=== PATIENT | female | born 1945 | race Caucasian/White ===

== ENCOUNTER 2024-06-16 15:43 | Inpatient (IN) | payer OTHER, SELFPAY ==
[2024-06-16] VITALS (10 sets, daily range): BP systolic 115–156; BP diastolic 67–90; BMI 17.3
--- NOTE | 2024-06-16 13:44 | ED.GENMED ---
History of Present Illness
General
Chief Complaint: Weakness
Time Seen by Provider: 06/16/24 13:43
History of Present Illness
History of Present Illness:
HPI: Patient came in by ambulance from home. The reason for visit is somewhat unclear. She initially tells me that she fell but then later says that she fell a year ago. She also tells me that her daughter was concerned because the patient was
'sleeping all day'.
EXAM:
GENERAL: She appears generally weak and debilitated
HEENT: Somewhat dry oral mucosa
CARDIOVASCULAR: No murmurs, normal heart rate, regular rhythm, No chest wall tenderness, port noted in the right anterior chest wall
PULMONARY: No respiratory distress, breath sounds are clear and equal
ABDOMEN: Soft with no peritoneal signs, no tenderness
NEUROLOGIC: 4+ out of 5 strength all extremities, no coordination deficits
PSYCHIATRIC: The patient appears somewhat confused at times and is a limited historian with some impaired memory but knows that she is at [place] and knows that it is June
EXTREMITIES: Nontender, no edema, moves all extremities equally
SKIN: No rash, no lesions
TIME OF INITIAL ENCOUNTER: 1:45 PM
NUMBER AND COMPLEXITY OF PROBLEMS ADDRESSED AT THE ENCOUNTER
� Chronic conditions affecting care: High blood pressure, hyperlipidemia, liver/uterine cancer, history of alcohol abuse/uterine
� Acute Exacerbation and/or Progression of Chronic Illness: This is an acute problem
� Differential Diagnosis includes: CVA, alcoholic encephalopathy, electrolyte abnormality
AMOUNT AND/OR COMPLEXITY OF DATA TO BE REVIEWED AND ANALYZED
� I performed an independent evaluation of and my interpretation is:
EKG: Sinus 70 left axis deviation, QTc [address]: CT head shows no acute abnormality
X-rays:
Laboratory Studies: CBC is unremarkable, sodium slightly low 133, bicarb is 31, creatinine 0.8, calcium is 12.8, magnesium is 1.1
Other:
� Review of other/old records: I reviewed her records, she has never had a calcium was high before
� Clinical information was obtained by an independent historian: I called Gin, daughter, but there was no answer.
� Prescriptions/Medications Considered but not given:
� Further testing considered but not performed:
RISK OF COMPLICATIONS AND/OR MORBIDITY OR MORTALITY OF PATIENT MANAGEMENT
� Social determinants of health affecting care: Lives at home
� Discussion with other providers: I discussed case with Dr. Alexis who recommends pamidronate 60mgIV; Dr. Low for admission
� Escalation of care including admission/observation vs risk of discharge considered: The patient is a very limited historian I attempted to call daughter for further history however as of 2:50 PM I was unable to reach her. She
was found to be hypercalcemic but has normal intervals on EKG. Ammonia less than 9. Transaminases have been elevated in the past but are near normal currently. She was also given IV fluids and replace her magnesium as well.
Past History
Past History
ED Past Medical History: HTN and Hypercholesterolemia
ED Past Surgical History: Gynecological
Social History
Tobacco: Smoker
Alcohol: Daily
Personal:
Living: with family
Phy Exam
Physical Exam
Physical Exam:
See HPI
Course
Orders/Labs/Results
Orders:
Orders
06/16/24 Breakfast
Cholesterol Lowering
At Your Request: Limited Participation
Cholesterol Lowering: Sodium, 2 Gram
06/16/24 13:46
0.9% Sodium Chloride 1000 ml [Nss] 1,000 ml IV BOLUS
06/16/24 13:52
CT Head W/o Iv Contrast Urgent
Comment:
Reason For Exam: severe weakness gait dysfunction
06/16/24 13:54
Alcohol Urgent
Complete Blood Count/With Diff Urgent
Comprehensive Metabolic Panel Urgent
Magnesium Urgent
TSH Reflex To Free T4 Urgent
06/16/24 13:56
Ammonia Urgent
06/16/24 14:40
Electrocardiogram (*1) Urgent
Reason for Study: Other
Other Reason for Exam: hypercalcemia
EKG- Treatment ONCE
06/16/24 15:02
Magnesium Sulfate 4 Gram/100Ml [Magnesium Sulfate] 4 gram in 100 ml IV NOW
06/16/24 15:29
Vitamin D, 25-OH Routine
06/16/24 15:31
PTH Related Peptide LC-MS/MS [S] Routine
06/16/24 15:34
Admit/Transfer Patient As Directed
Co-Sign Provider:
Level of Care: Inpatient admission
Assign to:: Telemetry
Physician / Group: rupa
Diagnosis: hypercalcemia
Reason for Telemetry: Other
Other Reason for Telemetry: electorlyte imbalance
Date to Stop Telemetry: 06/18/24
Time to Stop Telemetry: 11:00
Reason for Hospitalization: electrolyte imbalance
Expected length of stay greater than two midnights?: Yes
ELOS- Estimated Length of Stay in days: 3
I certify the patient meets the requirements for IP care: Yes
06/16/24 15:35
PRN Pain Medication Management As Directed
May give lesser potent ordered pain med per pt: Yes
preference::
Protocol:: Medication orders for pain may be administered in a
manner that supports deferring to patient preference
when the pt is:
- Requesting an ordered lesser potent pain medication.
Least to most potent pain medications are defined
as: acetaminophen < NSAID < tramadol < opioids
(morphine, oxycodone, hydromorphone).
- Requesting a lesser dose of the same medication IF
ORDERED.
- Requesting a less intrusive route of administration
if both routes are prescribed by the provider (PO <
IV).
06/16/24 15:36
Code Status As Directed
Resuscitation Status: Full Code
06/16/24 16:00
Pamidronate Disodium [Aredia] 60 mg 0.9% Sodium Chloride 250 ml [Nss] 250 ml IV ONCE
06/16/24 16:47
0.9% Sodium Chloride 1000 ml [Nss] 1,000 ml IV 100 mls/hr
Acetaminophen [Tylenol] 650 mg PO Q4HPRN PRN
Bisacodyl [Dulcolax] 10 mg RECTAL [id number] PRN
Docusate W/Senna [Senokot-S] 1 tablet PO BIDPRN PRN
Polyethylene Glycol Powder [Miralax] 17 grams PO DAILYPRN PRN
06/16/24 16:47
NEPHROLOGY CONSULT Routine
Consulting Provider: Brian Alexis V.
Was physician already notified: Yes
Activity As Directed
Activity Level: As Tolerated
Vital Signs As Directed
Frequency: Per unit guidelines
DX Deep Vein Thrombosis Video Routine
06/16/24 18:00
Enoxaparin Sodium [Lovenox] 40 mg SC QPM
06/16/24 20:00
Potassium Chloride Powder [Klor-Con] 20 meq PO BID
Thiamine HCl [Vitamin B1] 100 mg PO BID
06/16/24 22:00
Donepezil HCl [Aricept] 10 mg PO HS
06/17/24 06:00
Basic Metabolic Panel IN AM
Complete Blood Count/No Diff IN AM
06/17/24 08:00
Cholecalciferol (Vitamin D3) [VITAMIN D3 (cholecalciferol)] 25 mcg PO DAILY
Cyanocobalamin [Vitamin B-12] 1,000 mcg PO DAILY
Ezetimibe [Zetia] 10 mg PO DAILY
FOLic ACID [Folvite] 1 mg PO DAILY
Metoprolol Xl [Toprol Xl] 25 mg PO DAILY
Sertraline HCl [Zoloft] 100 mg PO DAILY
06/17/24 12:00
futibatinib 16 mg PO DAILY@1200
06/18/24 06:00
Basic Metabolic Panel IN AM
Complete Blood Count/No Diff IN AM
06/18/24 11:00
DC Protocol for Telemetry ONCE
06/19/24 06:00
Basic Metabolic Panel IN AM
Complete Blood Count/No Diff IN AM
06/20/24 06:00
Basic Metabolic Panel IN AM
Complete Blood Count/No Diff IN AM
06/21/24 06:00
Complete Blood Count/No Diff IN AM
Abnormal Lab Results
06/16/24 06/16/24
13:54 13:56
RBC 3.64 L 10^6/uL
(4.20-5.40)
Hct 34.2 L %
(37.0-47.0)
MCH 33.0 H pg
(27.0-31.0)
Absolute Lymphs (auto) 0.7 L 10^3/uL
(1.2-3.4)
Neutrophils % 80.8 H %
(42.2-75.2)
Lymphocytes % 9.8 L %
(20.5-51.1)
Sodium 133 L mmol/L
(135-145)
Chloride 91 L mmol/L
(98-107)
Carbon Dioxide 31 H mmol/L
(22-30)
BUN 21 H mg/dl
(7-17)
Glucose 138 H mg/dl
(70-99)
Calcium 12.8 H mg/dl
(8.4-10.2)
Magnesium 1.1 L mg/dl
(1.6-2.3)
AST 46 H U/L
(14-36)
Ammonia < 9 L umol/L
(9-30)
06/16/24 13:54
06/16/24 13:54
Vital Signs
Initial and Last Documented VS:
Initial Vital Signs
Temp Pulse Resp BP Pulse Ox
97.6 F 83 19 115/70 98
06/16/24 13:35 06/16/24 13:35 06/16/24 13:35 06/16/24 13:35 06/16/24 13:35
Last Documented Vital Signs
Temp Pulse Resp BP Pulse Ox
97.7 F 74 17 142/75 98
06/16/24 17:04 06/16/24 17:04 06/16/24 17:04 06/16/24 17:04 06/16/24 17:04
*Critical Care Note
Total Time (30-74mins, 75-104mins- exclusive of procedures): Not Applicable
ED Attending Note
-
Portions of this chart may have been created with voice recognition software.� Occasional wrong word or��sound alike� substitutions may have occurred due to the inherent limitations of voice recognition software.
Discharge Plan
Departure
Patient Disposition: Admit
Date of Disposition: 06/16/24
Time of Disposition: 15:12
Presentation/result/management discussed w/ accepting MD/DO: Hospitalist
Discharge Problem:
Hypercalcemia
Interventions
Interventions:
*Risk Screen - Suicide Last Done: 06/16/24 13:35
*General Assessment Last Done: 06/16/24 13:35
*Neglect/Abuse Screening Last Done: 06/16/24 13:35
*ED COVID-19 Vaccine History Last Done: 06/16/24 13:35
*Nursing Disposition Last Done: 06/16/24 17:20
ED- Cardiac Assessment Last Done: 06/16/24 13:42
ED- Neurological Assessment Last Done: 06/16/24 13:42
ED- Pulmonary Assessment Last Done: 06/16/24 13:42
Discharge Date and Time
Discharge Date/Time: 06/16/24 17:20
[2024-06-16] MEDS: NSS 1000 IV ×2 (13:55→17:51)
[2024-06-16 14:10] LABS: % Basophils 0.5 % (0-2); % Eosinophils 1.6 % (0-6); % Immature Granulocytes 0.5 % (0-0.5); % Lymphocytes 9.8 % (20.5-51.1); % Monocytes 6.8 % (1.7-9.3); % Neutrophils 80.8 % (42.2-75.2); Absolute Eosinophils 0.1 10^3/uL (0-0.7); Absolute Lymphocytes 0.7 10^3/uL (1.2-3.4); Absolute Monocytes 0.5 10^3/uL (0.1-0.6); Hematocrit 34.2 % (37.0-47.0); Mean Corp Hgb Conc. 35.1 g/dL (33.0-37.0); Mean Platelet Volume 8.6 fL (7.4-10.4); Nucleated Red Blood Cells % 0 %; Platelet Count 148 10^3/uL (130-400); Red Blood Cell Count 3.64 10^6/uL (4.20-5.40); Red Cell Dist. Width 12.5 % (11.5-14.5); White Blood Cell Count 7.5 10^3/uL (4.8-10.8)
[2024-06-16 14:28] LABS: Ammonia < 9 umol/L (9-30)
[2024-06-16 14:30] LABS: ALT (SGPT) 19 U/L (0-35); AST (SGOT) 46 U/L (14-36); Alkaline Phosphatase 98 U/L (38-126); Blood Urea Nitrogen 21 mg/dl (7-17); Calcium 12.8 mg/dl (8.4-10.2); Carbon Dioxide 31 mmol/L (22-30); Chloride 91 mmol/L (98-107); Glucose 138 mg/dl (70-99); Magnesium 1.1 mg/dl (1.6-2.3); Potassium 4.1 mmol/L (3.5-5.1); Sodium 133 mmol/L (135-145); Total Bilirubin 0.4 mg/dl (0.2-1.3); Total Protein 6.9 g/dl (6.3-8.2); eGFR > 60.00
[2024-06-16 14:49] LABS: Alcohol None Detected
[2024-06-16 14:58] LABS: TSH Reflex To Free T4 2.43 uIU/ml (0.47-4.68)
--- NOTE | 2024-06-16 14:59 | HPS.HSE ---
Family Physician
-
Family Physician: An Singleton
Chief Complaint
-
worsening confusion, garbled speech
History of Present Illness
78 year old with PMH for uterine ca patricia to liver, hld, depression presented to us with confusion which is worse than her baseline. daughter noticed mom sleeping more than usual. she was noted to have garbled speech. very weak. Patient denied
headache, dizziness, syncopal episode. Patient denied fever, chills, chest pain, short of breath. Patient denied abdominal pain, nausea, vomiting or diarrhea. Patient denied dysuria,hematuria.
Head CT with no acute findings. Patient was noted to have hypomagnesemia, hypercalcemia. Patient received mag rider, normal saline, pamidronate in the ER. Admitting for further management
Medical History
Past Medical History
Past Medical History: Reports Other
Additional Past Medical History:
htn
osteopenia
endometrial ca
dementia
cholangiocarcinoma
hld
depression
metastatic liver ca
Past Surgical History: Reports Other
Additional Past Surgical History:
cataract extraction
hysterectomy
Social History
Tobacco: Non-smoker
Alcohol: Former
Drug: None
Personal: Single
Living: With Family
Family History
Family History: Not pertinent
Allergies / Home Medications
Allergies reflects when Allergies were last updated in [facility].
Home Medications with original date entered in [facility]
Allergy/Medication List:
Allergies
Allergy/AdvReac Type Severity Reaction Status Date / Time
amoxicillin Allergy Unknown Verified 09/28/23 10:56
Cephalosporins Allergy Unknown Verified 09/28/23 10:56
penicillin G Allergy Unknown Verified 09/28/23 10:56
Penicillins Allergy Rash Verified 09/28/23 10:56
Home Medications
cholecalciferol (vitamin D3) 25 mcg (1,000 unit) tablet (Vitamin D3) 25 mcg PO DAILY ##0 07/30/16
donepezil 10 mg tablet 10 mg PO HS 07/01/23
folic acid 1 mg tablet 1 mg PO DAILY 07/01/23
metoprolol succinate 25 mg tablet,extended release 24 hr 25 mg PO DAILY 07/01/23
potassium chloride 20 mEq oral packet (Klor-Con) 20 meq PO BID 07/01/23
sertraline 100 mg tablet 100 mg PO DAILY 07/01/23
thiamine HCl (vitamin B1) 100 mg tablet 100 mg PO BID #0 tabs 07/02/23
cyanocobalamin (vitamin B-12) 1,000 mcg tablet 1,000 mcg PO DAILY 06/16/24
ezetimibe 10 mg tablet (Zetia) 10 mg PO DAILY 06/16/24
futibatinib 16 mg/day (4 mg x 4) tablet 16 mg PO DAILY@1200 06/16/24
Review of Systems
-
Constitutional: Reports No Symptoms
EENT: Reports No Symptoms
Respiratory: Reports No Symptoms
Cardiac: Reports No Symptoms
Abdomen/GI: Reports No Symptoms
: Reports No Symptoms
Musculoskeletal: Reports No Symptoms
Skin: Reports No Symptoms
Neurological: Reports Weakness
Endocrine: Reports No Symptoms
Hematologic/Lymphatic: Reports No Symptoms
Psych: Reports No Symptoms
Physical Exam
Vital Signs
Vital Signs
Temp Pulse Resp BP Pulse Ox
97.6 F 73 17 115/69 98
06/16/24 13:35 06/16/24 14:16 06/16/24 14:16 06/16/24 14:15 06/16/24 14:16
Physical Exam
General: Well Developed, Well Nourished and No Apparent Distress
HEENT: NormoCephalic, Moist mucous membranes and Atraumatic
Respiratory: Clear
Cardiac: S1/S2 and Regular Rhythm; No Murmur or Rub
GI: Soft, Non Tender, Non Distended and Normal Bowel Sounds; No Organomegaly
Rectal: Deferred by Provider
Musculoskeletal: No Clubbing, No Cyanosis and No Edema
Skin: No Rash
Neuro: AO x 3 and Nonfocal/grossly intact
Psych: Calm
Laboratory Results
-
06/16/24 13:54
06/16/24 13:54
Laboratory Results
Total Bilirubin 0.4 mg/dl (0.2-1.3) 06/16/24 13:54
AST 46 U/L (14-36) H 06/16/24 13:54
ALT 19 U/L (0-35) 06/16/24 13:54
Alkaline Phosphatase 98 U/L (38-126) 06/16/24 13:54
Data Reviewed
-
CT Scan: Report Reviewed by me
Lab Data: Labs Reviewed by me
Impression/Plan
-
#worsening generalized weakness/confusion/garbled speech
-hea CT with No acute intracranial abnormality noted.Senescent changes, similar to prior.
-ctm
-PT/OT consult
#hxt of liver and uterine ca
#hypercalcemia/hypomag likely dehydration
-pamidronate 60g iv in ER
-mag rider in ER
-check PTH and vitamin
-monitor labs in am
-Normal saline 100 cc continued
-Nephrology consulted
#chronic hyponatremia
-na 133
-ctm
#Essential hypertension
-Metoprolol continued with hold parameters
#Dementia -continue donepezil.
# Hyperlipidemia
-Zetia continued
# History of uterine cancer
-Status post hysterectomy
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
= On futibatinib
#Depression -continue sertraline.
# DVT prophylaxis
-Lovenox
Full code
[2024-06-16] MEDS: MAGNESIUM SULFATE 100 IV (15:14)
--- NOTE | 2024-06-16 15:19 | W.CON.NEPH ---
Consultation
-
Date/Time Consultation Requested: 06/16/2024 3:00 PM
Date/Time Consultation Performed: 06/16/2024 3:00 PM
Requesting Provider: Dr. Cabrera
Performing Provider: Dr. Alexis
Reason for Consultation: Hypercalcemia
Medical History
-
Chief Complaint: Hypercalcemia
History of Present Illness:
The patient is a 78-year-old female with a past medical history of hypertension currently only maintained on metoprolol. Her lisinopril was recently titrated off by her PCP due to hypotension. She has a history of cholangiocarcinoma with liver
mets and is maintained on palliative care as she did not previously tolerate chemo. She is maintained on benazepril for her evolving dementia and is maintained on Zetia for dyslipidemia. She presented to the hospital at the urging of her daughter
for increasing weakness and confusion. On presentation to the emergency room her calcium level was elevated to 12.8 and nephrology was consulted.
Past Medical History
Hypertension
Dementia
Cholangiocarcinoma with liver mets
Depression
Recurrent falls
History of orthostatic hypotension
Prior history of alcohol abuse
Social History
Tobacco: Non-Smoker
Alcohol: Chronic Alcoholic
Family History
No CKD
Allergies / Home Medications
Allergy/AdvReac Type Severity Reaction Status Date / Time
amoxicillin Allergy Unknown Verified 09/28/23 10:56
Cephalosporins Allergy Unknown Verified 09/28/23 10:56
penicillin G Allergy Unknown Verified 09/28/23 10:56
Penicillins Allergy Rash Verified 09/28/23 10:56
�Medication �Instructions �Recorded �Confirmed �Type
cholecalciferol (vitamin D3) 25 25 mcg PO DAILY ##0 07/30/16 06/16/24 History
mcg (1,000 unit) tablet (Vitamin
D3)
donepezil 10 mg tablet 10 mg PO HS 07/01/23 06/16/24 History
folic acid 1 mg tablet 1 mg PO DAILY 07/01/23 06/16/24 History
metoprolol succinate 25 mg 25 mg PO DAILY 07/01/23 06/16/24 History
tablet,extended release 24 hr
potassium chloride 20 mEq oral 20 meq PO BID 07/01/23 06/16/24 History
packet (Klor-Con)
sertraline 100 mg tablet 100 mg PO DAILY 07/01/23 06/16/24 History
thiamine HCl (vitamin B1) 100 mg 100 mg PO BID #0 tabs 07/02/23 06/16/24 Rx
tablet
cyanocobalamin (vitamin B-12) 1,000 mcg PO DAILY 06/16/24 06/16/24 History
1,000 mcg tablet
ezetimibe 10 mg tablet (Zetia) 10 mg PO DAILY 06/16/24 06/16/24 History
futibatinib 16 mg/day (4 mg x 4) 16 mg PO DAILY@1200 06/16/24 06/16/24 History
tablet
Review of Systems
-
Unable to obtain full review of systems at this time due to: Dementia
History Source: Patient
All other systems: Negative unless noted
Constitutional: Weight Loss and Other (decreased appetite, falls )
EENT: No Symptoms
Respiratory: No Symptoms
Cardiac: No Symptoms
Abdomen/GI: No Symptoms
: No Symptoms
Skin: No Symptoms
Neurological: Other (weakness)
Endocrine: No Symptoms
Hematologic/Lymphatic: No Symptoms
Physical Exam
Vital Signs
Vital Signs
Temp Pulse Resp BP Pulse Ox
97.6 F 73 17 115/69 98
06/16/24 13:35 06/16/24 14:16 06/16/24 14:16 06/16/24 14:15 06/16/24 14:16
Lab Results
06/16/24 13:54
06/16/24 13:54
WBC 7.5 10^3/uL (4.8-10.8) 06/16/24 13:54
RBC 3.64 10^6/uL (4.20-5.40) L 06/16/24 13:54
Hgb 12.0 g/dL (12.0-16.0) 06/16/24 13:54
Hct 34.2 % (37.0-47.0) L 06/16/24 13:54
Plt Count 148 10^3/uL (130-400) 06/16/24 13:54
Sodium 133 mmol/L (135-145) L 06/16/24 13:54
Potassium 4.1 mmol/L (3.5-5.1) 06/16/24 13:54
Chloride 91 mmol/L (98-107) L 06/16/24 13:54
Carbon Dioxide 31 mmol/L (22-30) H 06/16/24 13:54
BUN 21 mg/dl (7-17) H 06/16/24 13:54
Creatinine 0.8 mg/dL (0.6-1.0) 06/16/24 13:54
eGFR > 60.00 06/16/24 13:54
Glucose 138 mg/dl (70-99) H 06/16/24 13:54
Calcium 12.8 mg/dl (8.4-10.2) H 06/16/24 13:54
Albumin 4.0 g/dl (3.5-5.0) 06/16/24 13:54
Physical Exam
General: AOx1, Nontoxic , NAD, frail
HEENT: PERRL, EOMI, Anicteric, Conjunctivae Clear, Ear/Nose Intact, Hearing Normal, Oropharynx Clear/Moist, Dentition Intact, Facial Symmetry, Neck Supple, Neck: Trachea Midline, No JVD and No Thyromegaly, no Bruits
Respiratory: Clear to auscultation bilaterally with normal lung exersion
Cardiac: S1/S2 and Regular Rate/Rhythm
Breast: Deferred by me
Abdomen: Soft, Nontender, Nondistended, Normal Bowel Sounds and No Hepatosplenomegaly
Rectal: Deferred by Provider
Genito-urinary: No Costovertebral Tenderness
Extremities: No Clubbing, No Cyanosis and No Edema
Skin: No Rash or open lesions
Neuro: Nonfocal/Grossly Intact, CN II-XII (Intact) and Strength (Musculoskeletal exam 5 out of 5 both upper and lower extremities)
Hematologic/Lymphatic: No Cervical Lymphadenopathy, No Submandibular Lymphadenopathy and No Supraclavicular Lymphadenopathy
Psych: Mood/afflect pleasant, Insight/judgement impaired
Vascular: plus 1pedal and radial pulses
Data Reviewed
-
CT Scan: Report Reviewed by me (CT of head without acute findings )
Medical Tests (Nuc Med, Echo etc): Other (EKG NSR at 70bpm (personally reviewed))
Labs: Labs Reviewed by me (BMP)
Old Records: Reviewed (Reviewed old records in electronic medical record from 09/28/2023 calcium 10.6)
Assessment/Plan
-
Impression:
Hypercalcemia
History of cholangiocarcinoma with liver mets
History of hypertension
History of dementia
History of dyslipidemia
Prior history of alcohol abuse
Plan:
Patient presents with increasing fatigue and mental status changes likely induced from hypercalcemia: 12.8
-provided 60 mg IV pamidronate provided in the emergency room
-Initiate IV fluids normal saline 125 cc/h
-accurate i/os
-Obtain SPEP intact PTH, , PTH RP, TSH
-Suspect underlying hypercalcemia is a function of immobility and malignancy
[2024-06-16] MEDS: AREDIA 270 MG IV (15:44)
--- NOTE | 2024-06-16 16:08 | W.PN.UPDATE ---
Update Note
Progress Note Update
This is an addendum to the H&P written by Lorena Eli on 06/16/2024.� Patient seen and examined independently with RELIEF SALESPERSON.��
78-year-old female past medical history of uterine cancer, cholangiocarcinoma with metastases to liver on futibatinib, former alcohol use disorder, peripheral neuropathy, hyponatremia, hypomagnesemia, hypertension, hyperlipidemia, depression,
presenting with weakness, lethargy and difficulty speaking over the past few days.� Denies vomiting or diarrhea.
Patient with calcium of 12.8 likely related to malignancy/component of hypovolemia.� Check PTH, PTH-RP, vitamin D, SPEP, UPEP.� IV fluids.� Pamidronate being given.� Also with hypomagnesemia no longer drinking alcohol.� Magnesium repletion.�
Nephrology consulted.
[2024-06-16] MEDS: LOVENOX 40 MG SC (18:00)
[2024-06-16 18:34] LABS: Vitamin D, 25-OH*** 57.6 ng/mL (30-80)
[2024-06-16] MEDS: KLOR-CON 20 MEQ PO (20:10)
[2024-06-16] MEDS: VITAMIN B1 100 MG PO (20:10)
[2024-06-16] MEDS: ARICEPT 10 MG PO (20:54)
[2024-06-17] VITALS (7 sets, daily range): BP systolic 108–176; BP diastolic 58–96; PULSE 73; BMI 17.3
[2024-06-17] MEDS: NSS 1000 IV ×3 (02:06→20:06)
[2024-06-17 07:42] LABS: Hematocrit 33.3 % (37.0-47.0); Hemoglobin 11.9 g/dL (12.0-16.0); Mean Corp Hgb Conc. 35.7 g/dL (33.0-37.0); Mean Corpuscular Hgb 33.4 pg (27.0-31.0); Mean Corpuscular Volume 93.5 fL (81.0-99.0); Mean Platelet Volume 8.8 fL (7.4-10.4); Platelet Count 147 10^3/uL (130-400); Red Blood Cell Count 3.56 10^6/uL (4.20-5.40); Red Cell Dist. Width 12.5 % (11.5-14.5); White Blood Cell Count 7.7 10^3/uL (4.8-10.8)
[2024-06-17 08:14] LABS: Blood Urea Nitrogen 13 mg/dl (7-17); Calcium 12.3 mg/dl (8.4-10.2); Carbon Dioxide 28 mmol/L (22-30); Chloride 96 mmol/L (98-107); Estimated Creatinine Clearance 59 ml/min; Glucose 113 mg/dl (70-99); Potassium 3.6 mmol/L (3.5-5.1); Sodium 133 mmol/L (135-145); eGFR > 60.00
[2024-06-17] MEDS: ZETIA 10 MG PO (09:22)
[2024-06-17] MEDS: VITAMIN D3 (cholecalciferol) 25 MCG PO (09:23)
[2024-06-17] MEDS: FOLVITE 1 MG PO (09:23)
[2024-06-17] MEDS: VITAMIN B1 100 MG PO ×2 (09:23→20:03)
[2024-06-17] MEDS: ZOLOFT 100 MG PO (09:23)
[2024-06-17] MEDS: VITAMIN B-12 1000 MCG PO (09:23)
[2024-06-17] MEDS: TOPROL XL 25 MG PO (09:23)
[2024-06-17] MEDS: KLOR-CON 20 MEQ PO ×2 (09:28→20:03)
--- NOTE | 2024-06-17 11:17 | W.PN.HOSP.TC ---
Addendum entered and electronically signed by Walt Joseph MD 06/17/24 15:54:
Cholangioscoma, with mets to liver lungs ribs. Follows at [facility] with Dr. Merritt.
Was on chemotherapy for 3 months and now has been on immunotherapy for 6 months.
Life expectancy 6 to 9 months
Had evaluation for potential hospice however missed push herself refused. This was on Thursday. Per daughter declined began on Thursday.
States that she is supposed to have a repeat CT chest abdomen pelvis in July to assess if targeted therapy is improving/helping.
Addendum entered and electronically signed by Walt Joseph MD 06/17/24 15:17:
cholangiosarcoma with liver mets. on futibatinib
Original Note:
Today's Communication/Plan
-
Daily BMP, follow Ca
Moitor on tele
IVF
May need calcitonin
Nephrology following
Assessment / Plan
Assessment / Plan
Imaging
Physical Exam
NAD, resting comfortably in bed
Scleral anicteric
Moist mucous membranes
No JVD
CTA bilateral
Normal S1-S2 no murmurs
Soft nontender nondistended bowel sounds active
No peripheral pitting edema
Moves extremities spontaneously
AAOx3
Assessment and Plan
Hypercalcemia
- -Multifactorial in the setting of malignancy, dryness, immobility
-s/p IV bisphos
-Main need to consider calcitonin
-Await PTH, VitD, Spep/UPEP
-Continue IVF
-Nephrology following
Uterine Ca with liver mets
-Outpatient [facility]-Onc follow up
-S/p hysterrectomy
HLD
-Continue zetia
Depression
-Cotinue Sertraline
Anticipated Discharge: 24 - 48 hours
Subjective/Interval History
-
Date of Service: June 17, 2024
seen and examined
no new compalints
no acute overnight events
just returned from using the restroom
Objective Data
-
Labs:
Laboratory Results
06/17/24
07:15
WBC 7.7
Hgb 11.9 L
Hct 33.3 L
Plt Count 147
Sodium 133 L
Potassium 3.6
Chloride 96 L
Carbon Dioxide 28
BUN 13
Creatinine 0.5 L
Glucose 113 H
Calcium 12.3 H
Vital Signs:
Vital Signs
Temp Pulse Resp BP Pulse Ox
97.4 F 69 16 166/87 97
06/17/24 07:30 06/17/24 07:30 06/17/24 07:30 06/17/24 07:30 06/17/24 07:30
I&O
06/16/24 06/17/24 06/18/24
06:59 06:59 06:59
Intake Total 1979
Balance 1979
--- NOTE | 2024-06-17 17:09 | W.PN.NEPH.PH ---
Today's Communication / Plan
-
see plan
Assessment/Plan
-
Impression:
Hypercalcemia
History of cholangiocarcinoma with liver mets
History of hypertension
History of dementia
History of dyslipidemia
Prior history of alcohol abuse
Plan:
Patient presents with increasing fatigue and mental status changes likely induced from hypercalcemia: 12.8
s/p 60 mg IV pamidronate on 06/16
michelle only slightly better at 12.3
cont normal saline 125 cc/h, will give 500cc bolus
-accurate i/os
pending SPEP intact PTH, , PTH RP, normal TSH and vit D, hold vit D med
-Suspect underlying hypercalcemia is a function of immobility and malignancy vs medication (Futibatinib)
CT abd ordered per primary
BP are increasing trend, add prn hydralazine and cont home meds
replace mg since remains low , check phos level, not on PPI
stable hyponatremia, encourage solute intake
labs in am
d/w nursing and primary
-
-
Date of Service: June 17, 2024
CC / HPI / ROS
-
Chief Complaint:
hypercalcemia
History of Present Illness:
michelle is 12.3 only slightly better
BP increasing trend
poor po intake per nursing
k normal, cr 0.5
mg low 1
Review of Systems:
no complaints, no dysuria. seem non oliguric
no nv/
abd discomfort
Labs
-
Labs:
WBC 7.7 10^3/uL (4.8-10.8) 06/17/24 07:15
RBC 3.56 10^6/uL (4.20-5.40) L 06/17/24 07:15
Hgb 11.9 g/dL (12.0-16.0) L 06/17/24 07:15
Hct 33.3 % (37.0-47.0) L 06/17/24 07:15
Plt Count 147 10^3/uL (130-400) 06/17/24 07:15
Sodium 133 mmol/L (135-145) L 06/17/24 07:15
Potassium 3.6 mmol/L (3.5-5.1) 06/17/24 07:15
Chloride 96 mmol/L (98-107) L 06/17/24 07:15
Carbon Dioxide 28 mmol/L (22-30) 06/17/24 07:15
BUN 13 mg/dl (7-17) 06/17/24 07:15
Creatinine 0.5 mg/dL (0.6-1.0) L 06/17/24 07:15
eGFR > 60.00 06/17/24 07:15
Glucose 113 mg/dl (70-99) H 06/17/24 07:15
Calcium 12.3 mg/dl (8.4-10.2) H 06/17/24 07:15
Albumin 4.0 g/dl (3.5-5.0) 06/16/24 13:54
Physical Exam
-
Vital Signs:
Vital Signs
Temp Pulse Resp BP Pulse Ox
98.2 F 74 16 176/93 97
06/17/24 12:04 06/17/24 12:04 06/17/24 12:04 06/17/24 12:04 06/17/24 12:04
Cardiovascular:: Regular rate and rhythm
Respiratory:: Bilateral: CTA
Lung Excursion:: Normal
Abdomen:: Nontender and Soft
Extremity Edema:: None: Bilateral:
Little Catheter: No
--- NOTE | 2024-06-17 17:14 | CM ---
Alert confused patient who lives with her dgt Gin in a 2 story home with 1 steps to enter and 14 steps to bed/bathroom. She is assisted in activates of daily living.She uses a walker and walker.Alesha chent at bedside answered IA questions.Will need
PT OT for dc planning
Had VN in past . No [facility]
Pharmacy [facility]
PCP Dr Singleton
PLAN Will need PT OT for dc planning
[2024-06-17] MEDS: PROCARDIA XL (EXTENDED RELEASE) 30 MG PO (17:24)
[2024-06-17] MEDS: MAGNESIUM SULFATE 100 IV (17:25)
[2024-06-17] MEDS: LOVENOX 40 MG SC (17:26)
[2024-06-17] MEDS: ARICEPT 10 MG PO (21:28)
[2024-06-18 03:00] VITALS: BP 130/68
[2024-06-18] MEDS: NSS 1000 IV ×2 (05:15→17:47)
[2024-06-18 06:00] VITALS: BMI 16.6
--- NOTE | 2024-06-18 07:48 | W.PN.HOSP.TC ---
Today's Communication/Plan
-
.
Assessment / Plan
Assessment / Plan
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 The patient was
noted she has been more sleeping recently than her usual. She was obtained head CT which sowed not acute abnormality. Her lab results revealed hypomagnesemia, hypercalcemia and hypophosphatemia. Patient received mag rider, normal saline,
pamidronate in the ER. She was admitted and was given mg and Phosphorus IV. she will be monitored for electrolyte imbalance and her other chronic medical problems.
Assessment and Plan
#Acute metabolic encephalopathy
-Underlying dementia
-Metabolic encephalopathy likely related Hyperglycemia, which is improving
-Patient is calm/cooperative
-Continue donepezil
#Generalized weakness
-Likely multifactorial with underlying Cholangiocarcinoma with mets to liver/lung
-She was able to ambulate 20 ft with RW with min assist on 06/17
#Hypercalcemia/Hypophosphatemia
-Likely due futibatinib side effect which was reviewed on literature: %50 percent of patients are expected to have hypercalcemia and electrolyte problems
-Ca level dropped from 12.3 to 10.5
-Vit D: normal level, TSH: normal level
-PTH and PTHrp pending
-IV bisphos was given at ER admission
-M.5 and P 1.8: Mg and Phosphorus was given yesterday and today
-Continue to check Ca, Mg, P daily
-Continue IVF
-Nephrology following
#Cholangiocarcinoma with mets to liver/lung
-Primary oncologist discussing prognosis/palliative care/hospice options
-Patient to follow-up with oncology next week in office
-Chest CT:
1. Extensive infiltrative hypoattenuating masses throughout both hepatic lobes in keeping with neoplasm/metastases.
2. Extensive pulmonary metastases throughout all lobes bilaterally.
3. Several prominent soft tissue osseous metastases as described.
#Hx of Uterine ca
-Outpatient FLIGHT OPERATIONS SPECIALIST-Onc follow up
-S/p hysterrectomy
#Hyponatremia
-Na Satbile at 133
-Monitor
#HLD
-Continue zetia
#Depression
-Cotinue Sertraline
Anticipated Discharge: 24 - 48 hours
Subjective/Interval History
-
Date of Service: June 18, 2024
The patient was seen in her room with her daughter and she reported feeing well. She denied chest pain, abdominal pain and any extremity pain.
Objective Data
-
Labs:
Laboratory Results
06/18/24
06:00
WBC Pending
Hgb Pending
Hct Pending
Plt Count Pending
Sodium Pending
Potassium Pending
Chloride Pending
Carbon Dioxide Pending
BUN Pending
Creatinine Pending
Glucose Pending
Calcium Pending
Vital Signs:
Vital Signs
Temp Pulse Resp BP Pulse Ox
97 F 64 14 130/68 97
06/18/24 03:00 06/18/24 03:00 06/18/24 03:00 06/18/24 03:00 06/18/24 03:00
I&O
06/17/24 06/18/24 06/19/24
06:59 06:59 06:59
Intake Total 1979 600 / 600 120 / 120
Balance 1979 600 / 600 120 / 120
Review of Systems
-
Unable to obtain full review of systems at this time due to: Dementia
History Source: Patient and Family
EENT: Reports No Symptoms Reported
Respiratory: Reports No Symptoms
Cardiac: Reports No Symptoms
Abdomen/GI: Reports No Symptoms
Genitourinary: Reports No Symptoms
Musculoskeletal: Reports Other (generalized weakness )
Skin: Reports No Symptoms
Neuro: Reports Other (Dementia)
Psych: Reports Other (calm )
Physical Exam
-
General: Comfortable and Appears Chronically Ill
HEENT: Normocephalic and Atraumatic
Respiratory: Clear to Auscultation
Cardiac: Regular Rhythm and S1/S2
GI: Soft, Nontender and Other (Some feeling of discomfort on the right upper side of abdomen. No rebound, no guarding )
Musculoskeletal: No Clubbing, No Cyanosis and Other (Generalized weakness )
Skin: Warm and Dry
Neuro: AO x 3
Psych: Calm
[2024-06-18 08:00] VITALS: BP 141/76
[2024-06-18 08:50] LABS: Hematocrit 30.4 % (37.0-47.0); Hemoglobin 10.8 g/dL (12.0-16.0); Mean Corp Hgb Conc. 35.5 g/dL (33.0-37.0); Mean Corpuscular Hgb 33.1 pg (27.0-31.0); Mean Corpuscular Volume 93.3 fL (81.0-99.0); Platelet Count 130 10^3/uL (130-400); Red Blood Cell Count 3.26 10^6/uL (4.20-5.40); Red Cell Dist. Width 12.5 % (11.5-14.5); White Blood Cell Count 6.2 10^3/uL (4.8-10.8)
[2024-06-18 09:10] LABS: Blood Urea Nitrogen 8 mg/dl (7-17); Calcium 10.5 mg/dl (8.4-10.2); Carbon Dioxide 26 mmol/L (22-30); Chloride 97 mmol/L (98-107); Estimated Creatinine Clearance 56 ml/min; Glucose 99 mg/dl (70-99); Magnesium 1.5 mg/dl (1.6-2.3); Phosphorus 1.8 mg/dl (2.5-4.5); Potassium 3.4 mmol/L (3.5-5.1); Sodium 133 mmol/L (135-145); eGFR > 60.00
[2024-06-18] MEDS: KLOR-CON 20 MEQ PO ×2 (09:38→19:52)
[2024-06-18] MEDS: VITAMIN B1 100 MG PO ×2 (09:38→19:52)
[2024-06-18] MEDS: PROCARDIA XL (EXTENDED RELEASE) 30 MG PO (09:39)
[2024-06-18] MEDS: TOPROL XL 25 MG PO (09:39)
[2024-06-18] MEDS: VITAMIN B-12 1000 MCG PO (09:39)
[2024-06-18] MEDS: FOLVITE 1 MG PO (09:39)
[2024-06-18] MEDS: ZOLOFT 100 MG PO (09:39)
[2024-06-18] MEDS: ZETIA 10 MG PO (09:39)
[2024-06-18] MEDS: POTASSIUM PHOSPHATE 259.0909 MEQ IV (11:27)
[2024-06-18] MEDS: OMNIPAQUE 50 ML PO (11:37)
[2024-06-18 11:55] VITALS: BP 117/61
--- NOTE | 2024-06-18 13:38 | W.PN.NEPH.PH ---
Today's Communication / Plan
-
wean down IVF rate
replace k, mg and phos
Assessment/Plan
-
Impression:
Hypercalcemia
History of cholangiocarcinoma with liver mets
History of hypertension
History of dementia
History of dyslipidemia
Prior history of alcohol abuse
Plan:
Patient presents with increasing fatigue and mental status changes likely induced from hypercalcemia: 12.8
s/p 60 mg IV pamidronate on 06/16
michelle improving to 10.5
decrease normal saline 80 cc/hr and attempt to wean off tomorrow
-accurate i/os
pending SPEP intact PTH, , PTH RP, normal TSH and vit D, hold vit D med
-Suspect underlying hypercalcemia is a function of immobility and malignancy vs medication (Futibatinib)
CT abd ordered per primary
BP stable, cont home meds
replace mg and phos not on PPI
stable hyponatremia, encourage solute intake
labs in am
d/w pt
-
-
Date of Service: June 18, 2024
CC / HPI / ROS
-
Chief Complaint:
hypercalcemia
History of Present Illness:
michelle better at 10.5
BP stable
poor po intake
k low 3.4, mg better at 1.5, phos 1.8
Review of Systems:
no complaints, no dysuria. seem non oliguric
no nv/
no abd discomfort currently
Labs
-
Labs:
WBC 6.2 10^3/uL (4.8-10.8) 06/18/24 08:23
RBC 3.26 10^6/uL (4.20-5.40) L 06/18/24 08:23
Hgb 10.8 g/dL (12.0-16.0) L 06/18/24 08:23
Hct 30.4 % (37.0-47.0) L 06/18/24 08:23
Plt Count 130 10^3/uL (130-400) 06/18/24 08:23
Sodium 133 mmol/L (135-145) L 06/18/24 08:23
Potassium 3.4 mmol/L (3.5-5.1) L 06/18/24 08:23
Chloride 97 mmol/L (98-107) L 06/18/24 08:23
Carbon Dioxide 26 mmol/L (22-30) 06/18/24 08:23
BUN 8 mg/dl (7-17) 06/18/24 08:23
Creatinine 0.4 mg/dL (0.6-1.0) L 06/18/24 08:23
eGFR > 60.00 06/18/24 08:23
Glucose 99 mg/dl (70-99) 06/18/24 08:23
Calcium 10.5 mg/dl (8.4-10.2) H 06/18/24 08:23
Phosphorus 1.8 mg/dl (2.5-4.5) L 06/18/24 08:23
Albumin 4.0 g/dl (3.5-5.0) 06/16/24 13:54
Physical Exam
-
Vital Signs:
Vital Signs
Temp Pulse Resp BP Pulse Ox
97.5 F 74 16 117/61 99
06/18/24 11:55 06/18/24 11:55 06/18/24 11:55 06/18/24 11:55 06/18/24 11:55
Cardiovascular:: Regular rate and rhythm
Respiratory:: Bilateral: CTA
Lung Excursion:: Normal
Abdomen:: Nontender and Soft
Extremity Edema:: None: Bilateral:
Little Catheter: No
--- NOTE | 2024-06-18 13:43 | W.PN.UPDATE ---
Update Note
Progress Note Update
I saw and evaluated the patient. I reviewed the resident�s note and agree with findings and plan as documented in the resident�s note.
Patient remains pleasantly communicative.
Daughter at bedside during the AM round
Some lower abd discomfot, abd exam is benign,
1. Acute metabolic encephalopathy
Underlying cognitive impairment/dementia
-Patient remains pleasantly disoriented
-Metabolic encephalopathy likely related Hyperglycemia, which is improving
-Continue donepezil home dose
-No behavioral disturbances reported
2. Hypercalcemia
Hypophosphatemia
-Likely secondary to futibatinib side effect , literature reviewed and 50% patient develops this kind of electrolye imbalance
-Patient with pamidronate injection at admission
-Vitamin D within normal limit, up PTH and PTH RP level pending
-Calcium continue to trend down and 10.5 today
-Nephrology following and help appreciated
-Providing K-Phos rider to replete phosphorus
3. Hypomagnesemia
- replace with 2g magnesium
4. Metastatic cholangiocarcinoma
-Primary oncologist discussing prognosis/palliative care/hospice options
-CT chest abdomen pelvis ordered to better quantify tumor burden and therapy response
-Patient to follow-up with oncology next week in office
5. Hyponatremia
-minimal, monitor
PT/OT evaluation
Repeat blood work in morning
Potential discharge home tomorrow if appropriate.
Total time spent : 53mins
[2024-06-18 16:00] VITALS: BP 120/71
[2024-06-18] MEDS: MAGNESIUM SULFATE 50 IV (17:47)
[2024-06-18] MEDS: LOVENOX 40 MG SC (17:47)
[2024-06-18 19:00] VITALS: BP 132/80
[2024-06-18] MEDS: ARICEPT 10 MG PO (21:18)
[2024-06-18 23:00] VITALS: BP 120/61
[2024-06-19] VITALS (7 sets, daily range): BP systolic 109–147; BP diastolic 65–80; PULSE 77
[2024-06-19] MEDS: NSS IV (04:47)
[2024-06-19 05:00] LABS: Hematocrit 31.6 % (37.0-47.0); Hemoglobin 11.3 g/dL (12.0-16.0); Mean Corp Hgb Conc. 35.8 g/dL (33.0-37.0); Mean Corpuscular Hgb 32.9 pg (27.0-31.0); Mean Corpuscular Volume 92.1 fL (81.0-99.0); Mean Platelet Volume 9.1 fL (7.4-10.4); Platelet Count 151 10^3/uL (130-400); Red Blood Cell Count 3.43 10^6/uL (4.20-5.40); Red Cell Dist. Width 12.4 % (11.5-14.5); White Blood Cell Count 6.4 10^3/uL (4.8-10.8)
[2024-06-19 05:24] LABS: ALT (SGPT) 18 U/L (0-35); AST (SGOT) 54 U/L (14-36); Albumin 3.6 g/dl (3.5-5.0); Alkaline Phosphatase 105 U/L (38-126); Blood Urea Nitrogen 7 mg/dl (7-17); Carbon Dioxide 23 mmol/L (22-30); Chloride 96 mmol/L (98-107); Estimated Creatinine Clearance 56 ml/min; Glucose 80 mg/dl (70-99); Magnesium 1.6 mg/dl (1.6-2.3); Potassium 3.9 mmol/L (3.5-5.1); Sodium 130 mmol/L (135-145); Total Bilirubin 0.6 mg/dl (0.2-1.3); Total Protein 6.4 g/dl (6.3-8.2); eGFR > 60.00
--- NOTE | 2024-06-19 07:08 | W.PN.HOSP.TC ---
Addendum entered and electronically signed by Saman Joseph MD 06/19/24 13:59:
I saw and evaluated the patient. I reviewed the resident�s note and agree with findings and plan as documented in the resident�s note.
I saw and evaluated the patient. I reviewed the resident�s note and agree with findings and plan as documented in the resident�s note.
Patient remains pleasantly communicative.
Daughter at bedside during the AM round
Some lower abd discomfot, abd exam is benign,
1. Acute metabolic encephalopathy - resolved
Underlying cognitive impairment/dementia
-Patient remains pleasantly disoriented
-Metabolic encephalopathy likely related Hyperglycemia, which is improving
-Continue donepezil home dose
-No behavioral disturbances reported
2. Hypercalcemia
Hypophosphatemia
-Likely secondary to futibatinib side effect , literature reviewed and 50% patient develops this kind of electrolye imbalance
-Patient with pamidronate injection at admission
-Vitamin D within normal limit, up PTH and PTH RP level pending
-Calcium continue to trend down and 10 today
-Nephrology following and help appreciated
-Phosphorus 2, providing Neutra-Phos dose today, recheck Phos in morning
3. Hypomagnesemia
- replace as needed
4. Metastatic cholangiocarcinoma
-Primary oncologist discussing prognosis/palliative care/hospice options
-CT chest abdomen pelvis images reviewed. Discussed with daughter and will give CT scan images to take home for primary oncology to review on follow-up
-Patient to follow-up with oncology next week in office
5. Hyponatremia
-minimal, monitor
Medically clear, family would like patient to go through longterm facility for rehab.
Original Note:
Today's Communication/Plan
-
-Follow up for electrolyte imbalance
-Assessment for a skilled placement for rehab
Assessment / Plan
Assessment / Plan
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 The patient was
noted she has been more sleeping recently than her usual. She was obtained head CT which sowed not acute abnormality. Her lab results revealed hypomagnesemia, hypercalcemia and hypophosphatemia. Patient received pamidronate in the ER. She was
admitted and was given mg and Phosphorus IV. She is being monitorized for electrolyte imbalance and her other chronic medical problems.
Assessment and Plan
#Acute metabolic encephalopathy
-Underlying dementia
-Metabolic encephalopathy likely related Hyperglycemia, which is improving
-Patient is calm/ cooperative
-Continue donepezil
#Generalized weakness
-Likely multifactorial with underlying Cholangiocarcinoma with mets to liver/lung
-She was able to ambulate 20 ft with RW with min assist on 06/17
#Hypercalcemia/Hypophosphatemia
-Likely due futibatinib side effect which was reviewed on literature: %50 percent of patients are expected to have hypercalcemia and electrolyte problems
-Ca level dropped from 12.3 to 10.0
-Vit D: normal level, TSH: normal level
-PTH and PTHrp pending
-IV bisphos was given at ER admission
-M.6and P:2- NeutraPhos was ordered today
-Continue to check Ca, Mg, P daily
-Continue IVF
-Nephrology following appreciated
#Cholangiocarcinoma with mets to liver/lung
-Primary oncologist discussing prognosis/palliative care/hospice options
-Patient have a follow-up with oncology next week in office
-Chest CT:
1. Extensive infiltrative hypoattenuating masses throughout both hepatic lobes in keeping with neoplasm/metastases.
2. Extensive pulmonary metastases throughout all lobes bilaterally.
3. Several prominent soft tissue osseous metastases as described.
#Hx of Uterine ca
-Outpatient CLINICAL APPEALS AUDITOR-Onc follow up
-S/p hysterrectomy
#Hyponatremia
-Na: 130 L this m and was given NeutraPhos
-Monitor
#HLD
-Continue zetia
#Depression
-Cotinue Sertraline
Anticipated Discharge: 24 - 48 hours
Subjective/Interval History
-
Date of Service: June 19, 2024'
Patient was seen comfortable in her bed, reporting she is doing well. She denied having abdominal pain this morning.
Objective Data
-
Labs:
Laboratory Results
06/19/24
04:06
WBC 6.4
Hgb 11.3 L
Hct 31.6 L
Plt Count 151
Sodium 130 L
Potassium 3.9
Chloride 96 L
Carbon Dioxide 23
BUN 7
Creatinine 0.5 L
Glucose 80
Calcium 10.0
Total Bilirubin 0.6
AST 54 H
ALT 18
Alkaline Phosphatase 105
Vital Signs:
Vital Signs
Temp Pulse Resp BP Pulse Ox
97.5 F 65 14 131/76 97
06/19/24 03:00 06/19/24 03:00 06/19/24 03:00 06/19/24 03:00 06/19/24 03:00
I&O
06/18/24 06/19/24 06/20/24
06:59 06:59 06:59
Intake Total 600 / 600 840 / 840
Balance 600 / 600 840 / 840
Review of Systems
-
Unable to obtain full review of systems at this time due to: Dementia
History Source: Patient and Family
EENT: Reports No Symptoms Reported
Respiratory: Reports No Symptoms
Cardiac: Reports No Symptoms
Abdomen/GI: Reports No Symptoms
Genitourinary: Reports No Symptoms
Musculoskeletal: Reports Other (generalized weakness)
Skin: Reports No Symptoms
Neuro: Reports Other (dementia )
Physical Exam
-
General: Comfortable and Appears Chronically Ill
HEENT: Normocephalic and Atraumatic
Respiratory: Clear to Auscultation
Cardiac: Regular Rhythm, S1/S2 and Other (Has a port on the right side of the chest )
GI: Soft, Nontender and Nondistended
Musculoskeletal: No Clubbing, No Cyanosis and Other (generalized weakness)
Skin: Warm and Dry
Neuro: Awake, Alert and Oriented
[2024-06-19] MEDS: KLOR-CON 20 MEQ PO ×2 (08:43→21:17)
[2024-06-19] MEDS: PROCARDIA XL (EXTENDED RELEASE) 30 MG PO (08:43)
[2024-06-19] MEDS: VITAMIN B1 100 MG PO ×2 (08:43→21:17)
[2024-06-19] MEDS: FOLVITE 1 MG PO (08:43)
[2024-06-19] MEDS: ZETIA 10 MG PO (08:43)
[2024-06-19] MEDS: TOPROL XL 25 MG PO (08:44)
[2024-06-19] MEDS: VITAMIN B-12 1000 MCG PO (08:44)
[2024-06-19] MEDS: ZOLOFT 100 MG PO (08:44)
--- NOTE | 2024-06-19 12:02 | CM ---
Spoke with patient's daughter, Gin, to discuss discharge plan; explained that PT recommended short term skilled placement for rehab. Daughter is agreeable with plan; SNF options identified; preferences are: [facility], and [facility] Referrals sent via [facility]
Plan: discharge to SNF pending bed availability and approved insurance authorization
[2024-06-19] MEDS: NEUTRA-PHOS POWDER PACKET 250 MG PO ×2 (14:04→17:57)
--- NOTE | 2024-06-19 14:41 | W.PN.NEPH.PH ---
Today's Communication / Plan
-
follow labs
Assessment/Plan
-
Impression:
Hypercalcemia
History of cholangiocarcinoma with liver mets
History of hypertension
History of dementia
History of dyslipidemia
Prior history of alcohol abuse
Plan:
Patient presents with increasing fatigue and mental status changes likely induced from hypercalcemia: 12.8
s/p 60 mg IV pamidronate on 06/16
michelle improving to 10, off iVF now
pending SPEP intact PTH, , PTH RP, normal TSH and vit D, hold vit D med
-Suspect underlying hypercalcemia is a function of immobility and malignancy vs medication (Futibatinib 50%)
CT c/a/p with contrast shows met disease
BP stable, cont home meds
neurta phos for low phos
hyponatremia, encourage solute intake , follow labs, FR , check U osmo, U na
labs in am
d/w pt
-
-
Date of Service: June 19, 2024
CC / HPI / ROS
-
Chief Complaint:
hypercalcemia
History of Present Illness:
michelle better at 10.
BP stable
poor po intake
k normal, mg better at 1.6, phos better at 2
Review of Systems:
no complaints,
no nv/
but poor appetite
Labs
-
Labs:
WBC 6.4 10^3/uL (4.8-10.8) 06/19/24 04:06
RBC 3.43 10^6/uL (4.20-5.40) L 06/19/24 04:06
Hgb 11.3 g/dL (12.0-16.0) L 06/19/24 04:06
Hct 31.6 % (37.0-47.0) L 06/19/24 04:06
Plt Count 151 10^3/uL (130-400) 06/19/24 04:06
Sodium 130 mmol/L (135-145) L 06/19/24 04:06
Potassium 3.9 mmol/L (3.5-5.1) 06/19/24 04:06
Chloride 96 mmol/L (98-107) L 06/19/24 04:06
Carbon Dioxide 23 mmol/L (22-30) 06/19/24 04:06
BUN 7 mg/dl (7-17) 06/19/24 04:06
Creatinine 0.5 mg/dL (0.6-1.0) L 06/19/24 04:06
eGFR > 60.00 06/19/24 04:06
Glucose 80 mg/dl (70-99) 06/19/24 04:06
Calcium 10.0 mg/dl (8.4-10.2) 06/19/24 04:06
Phosphorus 2.0 mg/dl (2.5-4.5) L 06/19/24 04:06
Albumin 3.6 g/dl (3.5-5.0) 06/19/24 04:06
Physical Exam
-
Vital Signs:
Vital Signs
Temp Pulse Resp BP Pulse Ox
98.8 F 70 16 109/65 99
06/19/24 12:01 06/19/24 12:01 06/19/24 12:01 06/19/24 12:01 06/19/24 12:01
Cardiovascular:: Regular rate and rhythm
Respiratory:: Bilateral: CTA
Lung Excursion:: Normal
Abdomen:: Nontender and Soft
Extremity Edema:: None: Bilateral:
Little Catheter: No
[2024-06-19 17:04] LABS: Osmolality Urine 442 mOsm/kg (300-900)
[2024-06-19 17:12] LABS: Urine Sodium 140 mmol/L (30-90)
[2024-06-19] MEDS: LOVENOX 40 MG SC (17:56)
[2024-06-19] MEDS: ARICEPT 10 MG PO (21:17)
[2024-06-20 03:00] VITALS: BP 139/81
[2024-06-20 06:28] LABS: Hematocrit 31.7 % (37.0-47.0); Hemoglobin 11.5 g/dL (12.0-16.0); Mean Corp Hgb Conc. 36.3 g/dL (33.0-37.0); Mean Corpuscular Hgb 33.2 pg (27.0-31.0); Mean Corpuscular Volume 91.6 fL (81.0-99.0); Mean Platelet Volume 8.4 fL (7.4-10.4); Platelet Count 146 10^3/uL (130-400); Red Blood Cell Count 3.46 10^6/uL (4.20-5.40); Red Cell Dist. Width 12.4 % (11.5-14.5); White Blood Cell Count 6.2 10^3/uL (4.8-10.8)
[2024-06-20 07:01] LABS: ALT (SGPT) 18 U/L (0-35); AST (SGOT) 64 U/L (14-36); Albumin 3.6 g/dl (3.5-5.0); Alkaline Phosphatase 108 U/L (38-126); Blood Urea Nitrogen 6 mg/dl (7-17); Calcium 9.7 mg/dl (8.4-10.2); Carbon Dioxide 25 mmol/L (22-30); Chloride 95 mmol/L (98-107); Estimated Creatinine Clearance 56 ml/min; Glucose 81 mg/dl (70-99); Magnesium 1.2 mg/dl (1.6-2.3); Potassium 3.7 mmol/L (3.5-5.1); Sodium 132 mmol/L (135-145); Total Bilirubin 0.6 mg/dl (0.2-1.3); Total Protein 6.4 g/dl (6.3-8.2); eGFR > 60.00
[2024-06-20 07:12] VITALS: BP 141/76
--- NOTE | 2024-06-20 07:39 | W.PN.HOSP.TC ---
Addendum entered and electronically signed by Elaina Garza MD 06/20/24 17:24:
I personally performed a history and physical exam of the patient and discussed management with the resident. I reviewed the resident's note and agree with the documented findings and plan of care HPI/CC.
78-year-old with confusion on admission.
CVS: S1-S2 normal
Chest: CTA B/L
Abdomen: Soft, NT / Bowel sounds present
Extremities: No edema, normal pulses
MANAGER FURNITURE: Non focal exam
# TME
Head CT without any acute changes
Hypercalcemia could be the reason for her confusion along with other electrolyte abnormalities
electrolyte abnormality side effects of Futibatinib
# Hypercalcemia-pamidronate given in the ER
Vitamin D levels normal
Normal saline
Calcium has normalized
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
# Mild hyponatremia
# Hypomagnesemia/hypophosphatemia-replace
# Hypertension-continue metoprolol, holding nifedipine
# Hyperlipidemia-continue Zetia
# Dementia-continue Aricept
# History of endometrial cancer status post hysterectomy in the past
# History of TB with pneumonectomy in the past
# Depression-continue sertraline
# History of heavy alcohol use in the past
# Ex-smoker
# DVT prophylaxis-Lovenox
# Full code
Part of this note was created using voice recognition system. Occasional wrong word or��sound alike� substitutions may have inadvertently occurred due to the inherent limitations of voice recognition software. If noted kindly bring it to my
attention for correction.
Original Note:
Today's Communication/Plan
-
-OT pending
-Discharge is planning
-Follow up electrolytes
Assessment / Plan
Assessment / Plan
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 The patient was
noted she has been more sleeping recently than her usual. She was obtained head CT which sowed not acute abnormality. Her lab results revealed hypomagnesemia, hypercalcemia and hypophosphatemia. Patient received pamidronate in the ER. She was
admitted and was given mg and Phosphorus IV. She is being motorized for electrolyte imbalance and her other chronic medical problems. During admission her BMP showed that her Ca level came back to normal, she received magnesium and phosphate.
Assessment and Plan
#Acute metabolic encephalopathy
-Resolved
-Underlying dementia
-Patient is oriented X3
-Head CT 06/16: No acute intracranial abnormality
-Patient is calm/ cooperative
-Continue donepezil
#Generalized weakness
-Likely multifactorial with underlying Cholangiocarcinoma with mets to liver/lung
-She was able to ambulate 20 ft with RW with min assist on 06/17
#Hypercalcemia/Hypophosphatemia
-Likely due futibatinib side effect which was reviewed on literature: %50 percent of patients are expected to have hypercalcemia and electrolyte problems
-Ca level is 9.7 which was 12.3 at admission
-Vit D: normal level, TSH: normal level
-PTH and PTHrp pending
-IV bisphos was given at ER admission
-M.2 and P:2 - NeutraPhos and Magnesium and was ordered today
-Continue to check Ca, Mg, P daily
-Continue IVF
-Nephrology following appreciated
#Cholangiocarcinoma with mets to liver/lung
-Primary oncologist discussing prognosis/palliative care/hospice options
-Patient have a follow-up with oncology next week in office
-Chest CT:
1. Extensive infiltrative hypoattenuating masses throughout both hepatic lobes in keeping with neoplasm/metastases.
2. Extensive pulmonary metastases throughout all lobes bilaterally.
3. Several prominent soft tissue osseous metastases as described.
#Hx of Uterine ca
-Outpatient GERIATRICS PHYSICIAN-Onc follow up
-S/p hysterrectomy
#Hyponatremia
-Na: up to 132 form 130 L this m and was given NeutraPhos
-Monitor
#HLD
-Continue zetia
#Depression
-Cotinue Sertraline
Anticipated Discharge: 24 - 48 hours
Subjective/Interval History
-
Date of Service: June 20, 2024
The patient was seen in her bed oriented and was asking fo her coffee.She denied any pain or symptoms.
Objective Data
-
Labs:
Laboratory Results
06/20/24
06:07
WBC 6.2
Hgb 11.5 L
Hct 31.7 L
Plt Count 146
Sodium 132 L
Potassium 3.7
Chloride 95 L
Carbon Dioxide 25
BUN 6 L
Creatinine 0.5 L
Glucose 81
Calcium 9.7
Total Bilirubin 0.6
AST 64 H
ALT 18
Alkaline Phosphatase 108
Vital Signs:
Vital Signs
Temp Pulse Resp BP Pulse Ox
98.3 F 71 18 141/76 98
06/20/24 07:12 06/20/24 07:12 06/20/24 07:12 06/20/24 07:12 06/20/24 07:12
I&O
06/19/24 06/20/24 06/21/24
06:59 06:59 06:59
Intake Total 840 / 840 1380 / 1380
Balance 840 / 840 1380 / 1380
Review of Systems
-
Unable to obtain full review of systems at this time due to: Dementia
History Source: Patient and Family
EENT: Reports No Symptoms Reported
Respiratory: Reports No Symptoms
Cardiac: Reports No Symptoms
Abdomen/GI: Reports No Symptoms
Genitourinary: Reports No Symptoms
Musculoskeletal: Reports Other (generalized weakness)
Neuro: Reports Other (dementia)
Physical Exam
-
General: Comfortable and Appears Chronically Ill
HEENT: Normocephalic and Atraumatic
Respiratory: Clear to Auscultation
Cardiac: Regular Rhythm and S1/S2
GI: Soft, Nontender and Nondistended
Musculoskeletal: No Clubbing, No Cyanosis and Other (generalized weakness)
Skin: Warm and Dry
Neuro: Awake, Alert, Oriented, AO x 3, Nonfocal/Grossly Intact and Other (dementia)
[2024-06-20] MEDS: FOLVITE 1 MG PO (09:14)
[2024-06-20] MEDS: KLOR-CON 20 MEQ PO (09:14)
[2024-06-20] MEDS: VITAMIN B1 100 MG PO ×2 (09:14→21:34)
[2024-06-20] MEDS: ZETIA 10 MG PO (09:14)
[2024-06-20] MEDS: PROCARDIA XL (EXTENDED RELEASE) 30 MG PO (09:15)
[2024-06-20] MEDS: VITAMIN B-12 1000 MCG PO (09:15)
[2024-06-20] MEDS: TOPROL XL 25 MG PO (09:15)
[2024-06-20] MEDS: ZOLOFT 100 MG PO (09:15)
[2024-06-20 10:58] VITALS: BP 140/78
--- NOTE | 2024-06-20 11:45 | W.PN.NEPH.PH ---
Today's Communication / Plan
-
replete lytes
Assessment/Plan
-
Impression:
Hypercalcemia
History of cholangiocarcinoma with liver mets
History of hypertension
History of dementia
History of dyslipidemia
Prior history of alcohol abuse
Plan:
await hypercalcemic w/u
replete KPhos po
replete Mag IV
follow BMP'FR 1200ml
-
-
Date of Service: June 20, 2024
CC / HPI / ROS
-
Chief Complaint:
hypercalcemia
History of Present Illness:
calcium 9.7
BP stable
Na up to 132
Phos low 2
mag low 1.2
Review of Systems:
no CP/SOB
poor appetite
Labs
-
Labs:
WBC 6.2 10^3/uL (4.8-10.8) 06/20/24 06:07
RBC 3.46 10^6/uL (4.20-5.40) L 06/20/24 06:07
Hgb 11.5 g/dL (12.0-16.0) L 06/20/24 06:07
Hct 31.7 % (37.0-47.0) L 06/20/24 06:07
Plt Count 146 10^3/uL (130-400) 06/20/24 06:07
Sodium 132 mmol/L (135-145) L 06/20/24 06:07
Potassium 3.7 mmol/L (3.5-5.1) 06/20/24 06:07
Chloride 95 mmol/L (98-107) L 06/20/24 06:07
Carbon Dioxide 25 mmol/L (22-30) 06/20/24 06:07
BUN 6 mg/dl (7-17) L 06/20/24 06:07
Creatinine 0.5 mg/dL (0.6-1.0) L 06/20/24 06:07
eGFR > 60.00 06/20/24 06:07
Glucose 81 mg/dl (70-99) 06/20/24 06:07
Calcium 9.7 mg/dl (8.4-10.2) 06/20/24 06:07
Phosphorus 2.0 mg/dl (2.5-4.5) L 06/20/24 06:07
Albumin 3.6 g/dl (3.5-5.0) 06/20/24 06:07
Physical Exam
-
Vital Signs:
Vital Signs
Temp Pulse Resp BP Pulse Ox
98.9 F 76 17 140/78 99
06/20/24 10:58 06/20/24 10:58 06/20/24 10:58 06/20/24 10:58 06/20/24 10:58
Cardiovascular:: Regular rate and rhythm
Respiratory:: Bilateral: CTA
Lung Excursion:: Normal
Abdomen:: Nontender and Soft
Bowel Sounds:: Normal
Extremity Edema:: None: Bilateral:
[2024-06-20] MEDS: MAGNESIUM SULFATE 50 IV ×2 (12:34→15:19)
[2024-06-20 15:00] VITALS: BP 134/73; PULSE 83; O2SAT 98
[2024-06-20 15:19] VITALS: BP 146/80
[2024-06-20] MEDS: NEUTRA-PHOS POWDER PACKET 250 MG PO ×3 (15:19→21:34)
[2024-06-20] MEDS: LOVENOX 40 MG SC (16:54)
--- NOTE | 2024-06-20 17:50 | CM ---
PT indicate SNF needed.
Requested an OT order form MD.
Spoke with [facility] said she can accept after auth ,
NPI provided.
Spoke with Gin ghotra she and pt are aware plan to [facility] after auth obtained.
PLAN To [facility] after auth obtained.
[2024-06-20] MEDS: ARICEPT 10 MG PO (21:34)
[2024-06-20 23:45] VITALS: BP 135/78
[2024-06-21 03:55] LABS: Hematocrit 32.2 % (37.0-47.0); Hemoglobin 11.6 g/dL (12.0-16.0); Mean Corpuscular Hgb 32.9 pg (27.0-31.0); Mean Corpuscular Volume 91.2 fL (81.0-99.0); Mean Platelet Volume 8.4 fL (7.4-10.4); Platelet Count 148 10^3/uL (130-400); Red Blood Cell Count 3.53 10^6/uL (4.20-5.40); Red Cell Dist. Width 12.4 % (11.5-14.5); White Blood Cell Count 6.5 10^3/uL (4.8-10.8)
[2024-06-21 04:55] LABS: Blood Urea Nitrogen 6 mg/dl (7-17); Calcium 9.2 mg/dl (8.4-10.2); Carbon Dioxide 23 mmol/L (22-30); Chloride 94 mmol/L (98-107); Estimated Creatinine Clearance 56 ml/min; Glucose 88 mg/dl (70-99); Magnesium 1.7 mg/dl (1.6-2.3); Phosphorus 2.4 mg/dl (2.5-4.5); Potassium 3.8 mmol/L (3.5-5.1); Sodium 129 mmol/L (135-145); eGFR > 60.00
--- NOTE | 2024-06-21 07:09 | W.PN.HOSP.TC ---
Addendum entered and electronically signed by Elaina Garza MD 06/21/24 14:40:
I personally performed a history and physical exam of the patient and discussed management with the resident. I reviewed the resident's note and agree with the documented findings and plan of care HPI/CC.
78-year-old with confusion on admission. AAOriented now
CVS: S1-S2 normal
Chest: CTA B/L
Abdomen: Soft, NT / Bowel sounds present
Extremities: No edema
# TME
Head CT without any acute changes
Hypercalcemia could be the reason for her confusion along with other electrolyte abnormalities
electrolyte abnormality side effects of Futibatinib
# Hypercalcemia-pamidronate given in the ER
Vitamin D levels normal
Normal saline
Calcium has normalized
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 Even though Samsca was ordered initially this was discontinued by nephrology. Plan is to monitor sodium as outpatient with fluid restriction.
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
# Hypomagnesemia/hypophosphatemia-replace
# Hypertension-continue metoprolol, nifedipine
# Hyperlipidemia-continue Zetia
# Dementia-continue Aricept
# History of endometrial cancer status post hysterectomy in the past
# History of TB with pneumonectomy in the past
# Depression-continue sertraline
# History of heavy alcohol use in the past
# Ex-smoker
# DVT prophylaxis-Lovenox
# Full code
Part of this note was created using voice recognition system. Occasional wrong word or��sound alike� substitutions may have inadvertently occurred due to the inherent limitations of voice recognition software. If noted kindly bring it to my
attention for correction.
Spoke to daughter and updated. reviewed re CT. patient's other daughter took the CD to the oncologist. Patient has an appointment with Dr. Merritt on
Discussed with nephrology
Discussed with case management
Total discharge coordination time more than 36 minutes
Original Note:
Today's Communication/Plan
-
-Osm sudies due hyponatremia
-Samsca was added by nephro
-Discharge plan
Assessment / Plan
Assessment / Plan
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 The patient was
noted she has been more sleeping recently than her usual. She was obtained head CT which sowed not acute abnormality. Her lab results revealed hypomagnesemia, hypercalcemia and hypophosphatemia. Patient received pamidronate in the ER due her
hypercalcemia. She was admitted and was given Mg and Phosphorus. She is being motorized for electrolyte imbalance and her other chronic medical problems. During admission her BMP showed that her Ca level came back to normal level.
Assessment and Plan
#Acute metabolic encephalopathy
-Resolved
-Underlying dementia
-Patient is oriented X3
-Head CT 06/16: No acute intracranial abnormality
-Patient is calm/ cooperative
-Continue donepezil
#Generalized weakness
-Likely multifactorial with underlying Cholangiocarcinoma with mets to liver/lung
-She was able to ambulate 60 ft with RW with min assist on 06/20
#Hypercalcemia/Hypophosphatemia
-Likely due futibatinib side effect which was reviewed on literature: %50 percent of patients are expected to have hypercalcemia and electrolyte problems
-Ca level is 9.2 which was 12.3 at admission
-Vit D: normal level, TSH: normal level
-PTH and PTHrp pending
-IV bisphos was given at ER admission
-M.7 and P:2.4 - NeutraPhos was ordered today
-Continue to check Ca, Mg, P daily
-Continue IVF
-Nephrology following appreciated
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
-Na:129 this m and was given NeutraPhos
-On fluid intake limitation
-Monitor
-Samsca was started by nephrology today
-Osmolality studies were ordered
#Cholangiocarcinoma with mets to liver/lung
-Primary oncologist discussing prognosis/palliative care/hospice options
-Patient have a follow-up with oncology next week in office
-Chest CT:
1. Extensive infiltrative hypoattenuating masses throughout both hepatic lobes in keeping with neoplasm/metastases.
2. Extensive pulmonary metastases throughout all lobes bilaterally.
3. Several prominent soft tissue osseous metastases as described.
#Hx of Uterine ca
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
-S/p hysterrectomy
#HLD
-Continue zetia
#Depression
-Cotinue Sertraline
#DVT
-Heparine
Anticipated Discharge: 24 - 48 hours
Subjective/Interval History
-
Date of Service: June 21, 2024
The patient was seen in her bed and reported feeling well. She was able to ambulate with RW 60ft yesterday with min assist.
Objective Data
-
Labs:
Laboratory Results
06/21/24
03:51
WBC 6.5
Hgb 11.6 L
Hct 32.2 L
Plt Count 148
Sodium 129 L
Potassium 3.8
Chloride 94 L
Carbon Dioxide 23
BUN 6 L
Creatinine 0.5 L
Glucose 88
Calcium 9.2
Vital Signs:
Vital Signs
Temp Pulse Resp BP Pulse Ox
97.6 F 75 16 135/78 98
06/20/24 23:45 06/20/24 23:45 06/20/24 23:45 06/20/24 23:45 06/20/24 23:45
I&O
06/20/24 06/21/24 06/22/24
06:59 06:59 06:59
Intake Total 1380 / 1380 510 / 510
Balance 1380 / 1380 510 / 510
Review of Systems
-
Unable to obtain full review of systems at this time due to: Dementia
History Source: Patient and Family
Constitutional: Reports Weakness
EENT: Reports No Symptoms Reported
Respiratory: Reports No Symptoms
Cardiac: Reports No Symptoms
Abdomen/GI: Reports No Symptoms
Musculoskeletal: Reports Other (generalized weakness)
Neuro: Reports No Symptoms and Other (dementia)
Psych: Reports Other
Physical Exam
-
General: Comfortable and Appears Chronically Ill
HEENT: Normocephalic and Atraumatic
Respiratory: Clear to Auscultation
Cardiac: Regular Rhythm and S1/S2
GI: Soft and Nontender
Musculoskeletal: No Clubbing, No Cyanosis and Other (generalized weakness)
Neuro: Awake, Alert, Oriented, AO x 3 and Nonfocal/Grossly Intact
Psych: Calm
[2024-06-21 07:30] VITALS: BP 136/87
--- NOTE | 2024-06-21 07:37 | W.DCSUMMARY ---
Discharge Summary
Discharge Data
Date of Admission: 06/16/24
Date of Discharge: 06/21/24
-
Pending Results: No
Additional Pending Results:
Discharging Physician : Dr Jake Davison
Disposition : Home
Principal Discharge diagnosis : Acute metabolic encephalopathy, Generalized weakness, Hypercalcemia/Hypophosphatemia/Hypomagnesemia, hyponatremia
Chronic Discharge diagnosis : Cholangiocarcinoma with mets to liver/lung, Hx of Uterine ca , chronic Hyponatremia, HLD, Depression
Hospital Course : The patient is a 78-year-old female who has past medical history of uterine cancer, Cholangiocarcinoma stage IV mets to liver/lung, HTN, HL presented to ER on 06/16 complaining from worsening confusion and weakness. The patient
was noted she has been more sleeping recently than her usual. She was obtained head CT which sowed not acute abnormality. Her lab results revealed hypomagnesemia, hypercalcemia and hypophosphatemia. Patient received mag rider, normal saline,
pamidronate in the ER. She was admitted and was given mg and Phosphorus IV. Following the treatment her Ca level dropped from 12.3 to 9.2 , Mg level increased from 1.1 to 1.7 , and P level was increased from 1.8 to 2.4, glucose check levels
showed improvement and decreased. After the treatment. the patient came back her normal mental cognition. The electrolyte abnormality can be related her medication ( futibatinib) or can be related with Cholangiocarcinoma with mets to liver/lung.
Further studies including PTH and PTH-rp was ordered and results are still pending. The patient will be seen by her oncologist this week. Her daughter was informed about the possible reason of her electrolyte imbalance and she will share this
concern with her mother`s oncologist. The patient was given a script for Ca, Mg, P, and BMP to be checked by her PCP.
Important imaging findings :
Head CT 06/16
IMPRESSION:
No acute intracranial abnormality noted.
Senescent changes, similar to prior.
Chest/Abdomen/ Pelvis CT 06/18
IMPRESSION:
1. Extensive infiltrative hypoattenuating masses throughout both hepatic lobes in keeping with neoplasm/metastases.
2. Extensive pulmonary metastases throughout all lobes bilaterally.
3. Several prominent soft tissue osseous metastases as described.
Discharge Plan
-
Patient Disposition: [facility]/SNF
Discharge Diagnosis/Procedures: Acute metabolic encephalopathy
Generalized weakness
Hypercalcemia/Hypophosphatemia/Hypomagnesemia
Stage IV cholangiocarcinoma
Hyponatremia
Hypertension
Hyperlipidemia
Dementia
Depression
Condition: Fair
Diet: Regular and Restrict fluids to 48 oz
Activity: With assistance and With Walker
Driving Restrictions: No driving
Bathing Restrictions: OK to Shower
Blood Work: Repeat Calcium, Magnesium, Phosphor and CMP 4 days
Other Services: PT and OT
Activity Restrictions/Additional Instructions:
PTH levels SPEP, UPEP , PTH related peptide pending at discharge
Referrals:
An Singleton MD [Family Provider] - in one week (The patient needs her Ca, Mg, P and CMP to be checked in one week upon discharge )
MAX THOMPSON MD [Non-Admitting Privileges] -
Additional Discharge Medication Instructions: STOP Vitamin D, Hold Futibatinib until discussion with oncologist
Prescriptions:
New
nifedipine 30 mg Tablet Extended Release
30 mg PO DAILY Qty: 30 0RF
Slow-Mag 71.5 mg tablet,delayed release (DR/EC)
71.5 mg PO DAILY Qty: 14 0RF
potassium chloride 10 mEq capsule, extended release
10 meq PO DAILY Qty: 30 0RF
Continued
donepezil 10 mg tablet
10 mg PO HS
sertraline 100 mg tablet
100 mg PO DAILY
folic acid 1 mg tablet
1 mg PO DAILY
metoprolol succinate 25 mg tablet extended release 24 hr
25 mg PO DAILY
thiamine HCl (vitamin B1) 100 mg Tablet
100 mg PO BID Qty: 0 0RF
cyanocobalamin (vitamin B-12) 1,000 mcg Tablet
1,000 mcg PO DAILY
ezetimibe [Zetia] 10 mg Tablet
10 mg PO DAILY
Held
futibatinib 16 mg/day (4 mg x 4) Tablet
16 mg PO DAILY@1200
Hold Instructions: Resume on 06/27/24. DISCUSS WITH ONCOLOGIST BEFORE RESUMPTION
Discontinued
cholecalciferol (vitamin D3) [Vitamin D3] 25 mcg (1,000 unit) Tablet
25 mcg PO DAILY Qty: 0
potassium chloride [Klor-Con] 20 mEq packet
20 meq PO BID
Discharge Orders:
Discharge Patient (As Directed); Ordered 06/21/24
Ordered By: Veronica Londono
Discharge Date and Time
Print Language: KOSOVAN
[2024-06-21] MEDS: ZOLOFT 100 MG PO (08:21)
[2024-06-21] MEDS: NEUTRA-PHOS POWDER PACKET 250 MG PO ×2 (08:21→12:39)
[2024-06-21] MEDS: ZETIA 10 MG PO (08:21)
[2024-06-21] MEDS: FOLVITE 1 MG PO (08:21)
[2024-06-21] MEDS: VITAMIN B-12 1000 MCG PO (08:21)
[2024-06-21] MEDS: VITAMIN B1 100 MG PO (08:21)
[2024-06-21] MEDS: PROCARDIA XL (EXTENDED RELEASE) 30 MG PO (08:22)
[2024-06-21] MEDS: TOPROL XL 25 MG PO (08:22)
--- NOTE | 2024-06-21 08:58 | PN.CDI ---
CDI
- -
CDI:
Physician Documentation Request
Admit Date: 06/16/24 15:43
Dear Doctor Bry,
Patient admitted with hypercalcemia.
06/17 Nutrition assessment, 'CBW: 104 lbs 3.2 oz BMI 17.3 underweight range, pts weight previous admission listed as 142 lbs 07/01 reflective of a 38 lb (27%) in 1 year significant. During visit RD able to visualize protrusion of clavicle, temporal
wasting, some apparent ribs and fat loss over triceps. With observed muscle and fat wasting and weight loss of > 20% in 1 year pt meets AND/ASPEN criteria of moderate protein calorie malnutrition of chronic illness.
Please provide in your note the diagnosis associated with the above findings and your assessment:
Moderate protein calorie malnutrition
Mild protein calorie malnutrition
Other (please specify)
[place] Criteria ([facility] Hospitalist 2017)
2 or more criteria must be present for either
non severe or severe malnutrition
Note that the criteria differs related to the
presence of an acute or chronic illness
Chronic Illness
Energy Intake Non Severe: <75% for >1 month
Severe: <75% for >1 month
Weight Loss Non Severe: 5% over 1 month
7.5% over 3 months
10% over 6 months
20% over 1 year
Severe: >5% over 1 month
>7.5% over 3 months
>10% over 6 months
>20% over 1 year
Body Fat Non Severe: Mild Loss
Severe: Severe Loss
Muscle Mass Non Severe: Mild Loss
Severe: Severe Loss
Fluid Accumulation Non Severe: Mild Accumulation
Severe: Moderate to severe
accumulation
Reduced Psychological Assistant Strength Non Severe: N/A
Severe: Measurably reduced
Use of terms such as suspected, likely, concern for, or probable (associated with a specific diagnosis that is being evaluated, monitored, or treated as if it exists) are acceptable and can be coded in the inpatient setting, when documented at the
time of discharge.
Thank you,
Karmen DAILY,RN,CCDS
CDI Specialist
Available via tiger text
Please use your independent medical judgment in providing your response.
[2024-06-21 09:15] LABS: Osmolality Serum 260 mOsm/kg (275-300)
[2024-06-21 09:30] LABS: Cortisol, Random 13.9 ug/dl
[2024-06-21 11:30] VITALS: BP 120/70; PULSE 76
[2024-06-21 11:31] VITALS: BP 120/70; PULSE 76
--- NOTE | 2024-06-21 12:13 | W.PN.NEPH.PH ---
Today's Communication / Plan
-
samsca
Assessment/Plan
-
Impression:
Hypercalcemia
History of cholangiocarcinoma with liver mets
History of hypertension
History of dementia
History of dyslipidemia
Prior history of alcohol abuse
Plan:
await hypercalcemic w/u
continue KPhos po
follow BMP
FR 1200ml
samsca today
-
-
Date of Service: June 21, 2024
CC / HPI / ROS
-
Chief Complaint:
hypercalcemia
History of Present Illness:
calcium 9.2
BP stable
Na 129
Phos low 2.4
mag better 1.7
Review of Systems:
no CP/SOB
poor appetite
Labs
-
Labs:
WBC 6.5 10^3/uL (4.8-10.8) 06/21/24 03:51
RBC 3.53 10^6/uL (4.20-5.40) L 06/21/24 03:51
Hgb 11.6 g/dL (12.0-16.0) L 06/21/24 03:51
Hct 32.2 % (37.0-47.0) L 06/21/24 03:51
Plt Count 148 10^3/uL (130-400) 06/21/24 03:51
Sodium 129 mmol/L (135-145) L 06/21/24 03:51
Potassium 3.8 mmol/L (3.5-5.1) 06/21/24 03:51
Chloride 94 mmol/L (98-107) L 06/21/24 03:51
Carbon Dioxide 23 mmol/L (22-30) 06/21/24 03:51
BUN 6 mg/dl (7-17) L 06/21/24 03:51
Creatinine 0.5 mg/dL (0.6-1.0) L 06/21/24 03:51
eGFR > 60.00 06/21/24 03:51
Glucose 88 mg/dl (70-99) 06/21/24 03:51
Calcium 9.2 mg/dl (8.4-10.2) 06/21/24 03:51
Phosphorus 2.4 mg/dl (2.5-4.5) L 06/21/24 03:51
Albumin 3.6 g/dl (3.5-5.0) 06/20/24 06:07
Physical Exam
-
Vital Signs:
Vital Signs
Temp Pulse Resp BP Pulse Ox
97.8 F 73 18 136/87 99
06/21/24 07:30 06/21/24 08:22 06/21/24 07:30 06/21/24 08:22 06/21/24 07:30
Cardiovascular:: Regular rate and rhythm
Respiratory:: Bilateral: CTA
Lung Excursion:: Normal
Abdomen:: Nontender and Soft
Bowel Sounds:: Normal
Extremity Edema:: None: Bilateral:
[2024-06-21] MEDS: SAMSCA 15 MG PO (12:30)
--- NOTE | 2024-06-21 12:33 | CM ---
Addendum entered by Iram Atkinson RN 06/21/24 14:25:
Spoke with Leana at [facility] obtained auth # [id number] NRD 06/27[birth year] call [phone] . Lolis Rivera aware of auth. Spoke with Gin ghotra aware of auth going to [facility] . IMM emailed to [email or web address] agrees with dc. Shayla Radha will
drive pt to [facility]. She will be here at 4 pm.
Original Note:
PT OT eval indicate SNF .
Family and pt picked [facility] .
Lolis at [facility] provided NPI .
Called [facility] 65. at [phone] .
Need auth for SNF.
Miguel
report [phone]
fax [phone]
PLAN To [facility] after auth obtained.
[2024-06-21 16:00] VITALS: BP 114/77
[2024-06-21 17:26] LABS: PTH Related Peptide LC-MS/MS 42.4 pmol/L (0.0-3.4)
[2024-06-22 02:25] LABS: Albumin 3.66 g/dL (3.75-5.01); Alpha 1 Globulin 0.36 g/dL (0.19-0.46); Alpha 2 Globulin 0.83 g/dL (0.48-1.05); Monoclonal Protein 0.37 g/dL (<=0.00); SPEP IFE Reflex IFE Done; Total Protein-Electrophoresis 6.8 g/dL (6.3-8.2)
[2024-06-22 02:27] LABS: IgA 433 mg/dL (68-408); IgG 980 mg/dL (768-1632); IgM 60 mg/dL (35-263)
--- NOTE | 2024-06-23 16:47 | W.PN.UPDATE ---
Update Note
Progress Note Update
Moderate protein calorie malnutrition
== END 2024-06-21 16:23 | DRG 640 ==
LOC: 3 WEST ACU 15:43
PROVIDERS: Internal Medicine; Registered Nurse; Specialist; Student in an Organized Health Care Education/Training Program; ADMITTING PHYSICIAN Hospitalist; ATTENDING PHYSICIAN Hospitalist; CONSULT PHYSICIAN Specialist; EMERGENCY PHYSICIAN Emergency Medicine; FAMILY PHYSICIAN Family Medicine
DX: E83.52 Hypercalcemia (principal); G93.41 Metabolic encephalopathy; E87.1 Hypo-osmolality and hyponatremia; C22.1 Intrahepatic bile duct carcinoma; F03.93 Unspecified dementia, unspecified severity, with mood disturbance; E44.0 Moderate protein-calorie malnutrition; Z68.1 Body mass index [BMI] 19.9 or less, adult; F17.200 Nicotine dependence, unspecified, uncomplicated; E83.42 Hypomagnesemia; E83.39 Other disorders of phosphorus metabolism; E78.00 Pure hypercholesterolemia, unspecified; F32.A Depression, unspecified; I10 Essential (primary) hypertension
CPT/HCPCS: 70450; 71260; 74177; 80048; 80053; 82077; 82140; 82306; 82533; 82784; 83519; 83735; 83930; 83935; 84100; 84155; 84165; 84300; 84443; 85025; 85027; 86334; 93005; 96361; 96365; 96366; 97116; 97163; 97166; 97530; 99285; J2430; Q9967